=== PATIENT | female | born 1990 | race Caucasian/White ===

== ENCOUNTER 2020-01-14 15:40 | Emergency (ER) | payer OTHER ==
[2020-01-14 16:22] LABS: Appearance,Urine Cloudy (Clear); Bacteria,Urine Occasional /hpf; Bilirubin,Urine Negative (Negative); Blood,Urine Moderate (Negative); Color,Urine Colorless; Glucose,Urine (UA) Negative (Negative); Ketones,Urine Negative (Negative); Leukocyte Esterase,Urine Large (Negative); Mucus,Urine Rare /hpf; Nitrite,Urine Negative (Negative); PH, Urine 5.5 (5.0-8.0); Protein,Urine Trace (Negative); RBC,Urine 9 /hpf (0-5); Specific Gravity,Urine 1.003 (1.001-1.035); Squamous Epithelial Cell,Urine 1 /hpf (0-4); Urobilinogen,Urine <2.0 mg/dL (<2.0); WBC,Urine 65 /hpf (0-5)
[2020-01-14] MEDS ORDERED: cefTRIAXone 1,000 MG VIAL (IM USE) IM STA (16:28)
--- NOTE | 2020-01-14 16:29 | ED ---
General Adult HPI - General Chief complaint: Urogenital Stated complaint: Abd pain Time Seen by Provider: 01/14/20 15:50 Source: patient, RN notes reviewed Mode of arrival: ambulatory Limitations: no limitations - History of Present Illness Initial comments: 29-year-old female with polycystic ovarian syndrome presents to the emergency department for a chief complaint of dysuria. Patient states she has had pain with urination for the past 6 days. States that she is also urinating much more frequently than normal. States that today she started to get some mild suprapubic pain radiating to the right lower quadrant. Patient denies any upper back pain. Denies vomiting. Patient denies any fevers at home.Patient has no other complaints at this time including shortness of breath, chest pain, nausea or vomiting, headache, or visual changes. - Related Data Home Medications Medication Instructions Recorded Confirmed L.acidoph,Paracasei, B.lactis 1 cap PO W/LUNCH 01/14/20 01/14/20 [Probiotic] Multivitamins, Thera [Multivitamin 1 tab PO W/LUNCH 01/14/20 01/14/20 (formulary)] Harvard-3 Fatty Acids [Harvard-3] 1,000 mg PO W/LUNCH 01/14/20 01/14/20 Vitamin C/Biotin [Hair, Skin and 1 tab PO W/LUNCH 01/14/20 01/14/20 Nails] Previous Rx's Medication Instructions Recorded Cephalexin [Keflex] 500 mg PO Q6HR 14 Days #56 cap 01/14/20 Allergies Allergy/AdvReac Type Severity Reaction Status Date / Time amoxicillin Allergy Unknown Verified 01/14/20 16:30 Childhood Review of Systems ROS Statement: Those systems with pertinent positive or pertinent negative responses have been documented in the HPI. ROS Other: All systems not noted in ROS Statement are negative. Past Medical History Additional Past Medical History / Comment(s): polycyctic ovarian syndrome History of Any Multi-Drug Resistant Organisms: None Reported Past Surgical History: No Surgical Hx Reported Past Psychological History: No Psychological Hx Reported Smoking Status: Never smoker Past Alcohol Use History: None Reported Past Drug Use History: None Reported General Exam Limitations: no limitations General appearance: alert, in no apparent distress Head exam: Present: atraumatic, normocephalic, normal inspection Eye exam: Present: normal appearance, PERRL, EOMI. Absent: scleral icterus, conjunctival injection, periorbital swelling ENT exam: Present: normal exam, mucous membranes moist Neck exam: Present: normal inspection, full ROM. Absent: tenderness, meningismus, lymphadenopathy Respiratory exam: Present: normal lung sounds bilaterally. Absent: respiratory distress, wheezes, rales, rhonchi, stridor Cardiovascular Exam: Present: regular rate, normal rhythm, normal heart sounds. Absent: systolic murmur, diastolic murmur, rubs, gallop, clicks GI/Abdominal exam: Present: soft, normal bowel sounds. Absent: distended, tenderness, guarding, rebound, rigid External exam: Present: normal external exam. Absent: erythema, swelling, lesions, lacerations, ecchymosis Speculum exam: Present: normal speculum exam. Absent: erythema, vaginal discharge, cervical discharge, vaginal bleeding, foreign body, tissue, laceration By manual exam: Present: normal by manual exam. Absent: cervical motion tenderness, adnexal tenderness, adnexal mass, uterine enlargement, uterine tenderness Back exam: Absent: CVA tenderness (R), CVA tenderness (L) Course Vital Signs 01/14/20 15:45 Temperature 99.1 F Pulse Rate 83 Respiratory 18 Rate Blood Pressure 126/77 O2 Sat by Pulse 98 Oximetry Medical Decision Making - Medical Decision Making Physical exam is unremarkable. No significant lower abdominal tenderness. Patient does admit to minimal right lower back pain but does not have any CVA tenderness or upper back pain. Gonorrhea chlamydia Trichomonas pending. Urinalysis does show 65 white blood cells with white blood cell clumps. Patient was treated with IM Rocephin. She'll be treated with Keflex outpatient. However I did recommend that the patient states he any upper back pain, vomiting, fevers, or any other worsening symptoms she is to return to the emergency department for IV fluids and IV antibiotics. She is agreeable to this.I discussed this case with attending Dr. Simms who agrees with this assessment and treatment plan. - Lab Data Lab Results 01/14/20 01/14/20 Range/Units 16:02 16:02 Urine Color Colorless Urine Appearance Cloudy H (Clear) Urine pH 5.5 (5.0-8.0) Ur Specific [place] 1.003 (1.001-1.035) Urine Protein Trace H (Negative) Urine Glucose (UA) Negative (Negative) Urine Ketones Negative (Negative) Urine Blood Moderate H (Negative) Urine Nitrite Negative (Negative) Urine Bilirubin Negative (Negative) Urine Urobilinogen <2.0 (<2.0) mg/dL Ur Leukocyte Esterase Large H (Negative) Urine RBC 9 H (0-5) /hpf Urine WBC 65 H (0-5) /hpf Urine WBC Clumps Few H (None) /hpf Ur Squamous Epith Cells 1 (0-4) /hpf Urine Bacteria Occasional H (None) /hpf Urine Mucus Rare H (None) /hpf Urine HCG, Qual Not Detected (Not Detectd) Disposition Clinical Impression: Dysuria Disposition: HOME SELF-CARE Condition: Good Instructions (If sedation given, give patient instructions): Urinary Tract Infection in Women (ED) Additional Instructions: Please take antibiotic as directed. Please follow up closely with your primary care provider. If you start to get any worsening symptoms such as worsening pain, upper back pain, fevers, are unable to keep down antibiotics, or any other worsening symptoms return immediately to the emergency room. Prescriptions: Cephalexin [Keflex] 500 mg PO Q6HR 14 Days #56 cap Is patient prescribed a controlled substance at d/c from ED?: No Referrals: Madina Joseph MD [Primary Care Provider] - 1-2 days Time of Disposition: 16:38
[2020-01-15 10:18] VITALS: BP 126/77; PULSE 83; RESP 18; TEMP 99.1
[2020-01-15 13:28] LABS: C. trachomatis,PCR Negative (Neg,Equiv); Chlamydia trachomatis Source Urine; N. gonorrhoeae,PCR Negative (Neg,Equiv); Neisseria Source Urine
== END 2020-01-14 16:50 | disposition home or self-care (01) ==
LOC: EC 15:40
DX: R30.0 Dysuria (principal); M54.5 Low back pain; R82.998 Other abnormal findings in urine; R10.2 Pelvic and perineal pain; Z88.0 Allergy status to penicillin; Z87.42 Personal history of other diseases of the female genital tract
CPT/HCPCS: 81001; 81025; 87086; 87491; 87591; 87808; 96372; 99283